=== PATIENT | female | born 1975 | race Caucasian/White ===

== ENCOUNTER 2020-11-28 04:57 | Observation (INO) ==
[2020-11-28] MEDS ORDERED: Ondansetron 4 MG/2 ML VIAL IVP ONE (05:16)
[2020-11-28] MEDS ORDERED: Morphine Sulfate 2 MG/ML SYRINGE IVP ONE (05:16)
[2020-11-28 05:47] LABS: Basophils # 0.1 K/mcL (0.0-0.2); Basophils % 1.1 %; Eosinophils # 0.2 K/mcL (0.0-0.6); Eosinophils % 1.8 %; Hematocrit 39.5 % (35.3-44.9); Immature Granulocytes % 0.2 % (0-4); Lymphocytes # 1.6 K/mcL (0.6-4.6); Lymphocytes % 19.3 %; Mean Corpuscular HGB Conc 32.9 g/dL (31.6-35.5); Mean Corpuscular Hemoglobin 28.1 pg (28.0-33.3); Mean Corpuscular Volume 85.3 fL (83.0-100.0); Mean Platelet Volume 11.1 fL (9.4-12.4); Monocytes # 0.7 K/mcL (0.0-1.3); Monocytes % 8.1 %; Neutrophils # 5.8 K/mcL (1.6-8.9); Platelet Count 291 K/mcL (140-400); Red Blood Count 4.63 M/mcL (3.82-4.97); Red Cell Distribution Width 13.7 % (11.5-14.5); Segmented Neutrophils % 69.5 %; White Blood Count 8.4 K/mcL (4.3-11.1)
[2020-11-28 06:08] LABS: Alanine Aminotransferase 24 Units/L (7-52); Albumin 4.3 g/dL (3.5-5.7); Albumin/Globulin Ratio 1.3 (1.1-2.2); Alkaline Phosphatase 80 Units/L (34-104); Aspartate Amino Transferase 18 Units/L (13-39); BUN/Creatinine Ratio 27 (6-26); Bilirubin,Direct 0.1 mg/dL (0.0-0.2); Bilirubin,Indirect 0.3 mg/dL (0.0-1.0); Bilirubin,Total 0.4 mg/dL (0.3-1.0); Blood Urea Nitrogen 23 mg/dL (6-20); Calcium 9.7 mg/dL (8.6-10.3); Carbon Dioxide 23 mEq/L (23-29); Chloride 105 mEq/L (98-107); Globulin 3.2 g/dL (2.4-3.5); Glucose 109 mg/dL (70-105); Lipase 19 Units/L (11-82); Osmolality,Calculated 288 (280-300); Potassium 4.1 mEq/L (3.5-5.1); Sodium 137 mEq/L (136-145); Total Protein 7.5 g/dL (6.4-8.9); eGFR For African Americans > 60 (> 60); eGFR For Non-African Americans > 60 (> 60)
[2020-11-28 07:25] LABS: Bilirubin,Urine Negative (Negative); Blood,Urine Moderate (Negative); Calcium Oxalate Crystals,Urine Present; Clarity,Urine Clear (Clear); Color,Urine Yellow (Yellow); Glucose,Urine (UA) Normal (Normal); Ketones,Urine Negative (Negative); Leukocyte Esterase,Urine Trace (Negative); Mucus,Urine Many per lpf (None-Few); Nitrite,Urine Negative (Negative); Protein,Urine 70 mg/dL (Neg-Trace); Specific Gravity,Urine > 1.030 (1.010-1.025); Squamous Epithelial Cell,Urine Moderate per hpf (None-Few); WBC,Urine 0-3 per hpf (0-3)
[2020-11-28] MEDS ORDERED: Naloxone 0.4 MG/ML INJ IVP PRN ×3 (08:24→18:05)
[2020-11-28] MEDS ORDERED: Ondansetron 4 MG/2 ML VIAL IVP PRN ×3 (08:24→18:05)
[2020-11-28] MEDS ORDERED: 0.9 % Sodium Chloride 1,000 ML IVC SCH (08:30)
[2020-11-28] MEDS ORDERED: 0.9 % Sodium Chloride 2,000 ML IVC SCH ×2 (08:45→18:05)
[2020-11-28] MEDS ORDERED: *HR* OxyCODONE/APAP 5/325 TABLET PO PRN ×2 (08:45→18:05)
[2020-11-28] MEDS ORDERED: FLUoxetine 20 MG CAPSULE PO SCH (09:00)
[2020-11-28] MEDS ORDERED: cefTRIAXone 1,000 MG in Water for inj. (sterile) 10 ML IVP SCH (09:00)
[2020-11-28] MEDS: *HR* HYDROmorphone (PF) 1 MG/ML SYRINGE IVP PRN ×3 (09:53→21:34)
[2020-11-28] MEDS ORDERED: Ketorolac 30 MG/ML VIAL IVP SCH (16:00)
[2020-11-28] MEDS ORDERED: *HR* FentaNYL (PF) 100 MCG/2 ML VIAL ONE (17:04)
[2020-11-28] MEDS ORDERED: *HR* Propofol 200 MG/20 ML VIAL IVP ONE (17:04)
[2020-11-28] MEDS ORDERED: Dexamethasone 4 MG/ML VIAL ONE (17:06)
[2020-11-28] MEDS ORDERED: Ondansetron 4 MG/2 ML VIAL ONE (17:06)
[2020-11-28] MEDS ORDERED: Lidocaine -MPF 2% 2 ML VIAL ONE (17:06)
[2020-11-28] MEDS ORDERED: Lidocaine HCL 4 ML Topical Solution (Laryng-O-Jet Kit Sterile Pak) TP ONE (17:06)
[2020-11-28] MEDS ORDERED: *HR* Succinylcholine 200 MG/10 ML VIAL IVP ONE (17:06)
[2020-11-28] MEDS ORDERED: *HR* Rocuronium Bromide 50 MG/5 ML VIAL ONE (17:09)
[2020-11-28] MEDS ORDERED: *HR* FentaNYL (PF) 100 MCG/2 ML VIAL IVP PRN (17:17)
[2020-11-28] MEDS ORDERED: *HR* HYDROmorphone PF 0.5 MG/0.5 ML SYRINGE IVP PRN (17:18)
[2020-11-28] MEDS ORDERED: Albuterol 2.5 MG/3 ML NEBULIZER IH PRN (17:18)
[2020-11-28] MEDS ORDERED: Nitroglycerin 0.4 MG TAB.SUBL SL PRN (17:18)
[2020-11-28] MEDS ORDERED: Sugammadex Sodium 200 MG/2 ML VIAL IV ONE (17:50)
[2020-11-28] MEDS: FLUoxetine 20 MG CAPSULE PO SCH (19:48)
[2020-11-29 03:15] LABS: Basophils % 0.4 %; Hematocrit 37.8 % (35.3-44.9); Immature Granulocytes % 0.4 % (0-4); Lymphocytes # 0.6 K/mcL (0.6-4.6); Lymphocytes % 7.6 %; Mean Corpuscular HGB Conc 31.7 g/dL (31.6-35.5); Mean Corpuscular Hemoglobin 28.2 pg (28.0-33.3); Mean Corpuscular Volume 88.7 fL (83.0-100.0); Mean Platelet Volume 11.6 fL (9.4-12.4); Monocytes # 0.2 K/mcL (0.0-1.3); Monocytes % 2.7 %; Neutrophils # 7.2 K/mcL (1.6-8.9); Platelet Count 267 K/mcL (140-400); Red Blood Count 4.26 M/mcL (3.82-4.97); Segmented Neutrophils % 88.9 %; White Blood Count 8.1 K/mcL (4.3-11.1)
[2020-11-29 03:40] LABS: BUN/Creatinine Ratio 19 (6-26); Blood Urea Nitrogen 16 mg/dL (6-20); Calcium 9.2 mg/dL (8.6-10.3); Carbon Dioxide 24 mEq/L (23-29); Chloride 105 mEq/L (98-107); Glucose 133 mg/dL (70-105); Osmolality,Calculated 289 (280-300); Potassium 4.2 mEq/L (3.5-5.1); Sodium 138 mEq/L (136-145); eGFR For African Americans > 60 (> 60); eGFR For Non-African Americans > 60 (> 60)
[2020-11-29] MEDS ORDERED: *HR* Enoxaparin 40 MG/0.4 ML SYRINGE SQ SCH ×2 (06:00)
[2020-11-29] MEDS: FLUoxetine 20 MG CAPSULE PO SCH (06:43)
[2020-11-29 08:22] VITALS: BP 102/69
[2020-11-29] MEDS: *HR* HYDROmorphone (PF) 1 MG/ML SYRINGE IVP PRN (08:29)
[2020-11-29] MEDS ORDERED: cefTRIAXone 1,000 MG in Water for inj. (sterile) 10 ML IVP SCH (09:00)
[2020-12-03 12:35] LABS: Calculi Mass 24 mg
== END 2020-11-29 10:59 | disposition home or self-care (01) ==
LOC: EMEROOARM 04:57 → 3BNU 04:57
PROVIDERS: ADMIT General Practice; ATTEND General Practice